=== PATIENT | male | born 1995 | race Caucasian/White ===

== ENCOUNTER 2021-07-12 10:13 | Emergency (ER) | payer OTHER, SELFPAY ==
--- NOTE | ~2021-07-12 | XR_ITS ---
EXAMINATION: XR HAND, LEFT CLINICAL INFORMATION: Index and middle finger trauma COMPARISON: None TECHNIQUE: PA, lateral, and oblique views of the left hand. FINDINGS: There is dressing seen overlying the second and third fingers. There is question of a soft tissue defect about the second distal phalanx. There is a linear lucency seen about the head of the second middle phalanx which may be related to artifact of the dressing or a nondisplaced fracture. If it is a fracture it appears to be intra-articular. Soft tissue swelling is present. There is some mild degenerative change about the first carpal metacarpal joint. There is some subchondral cyst formation seen involving the scaphoid which may be related to previous healed fracture or degenerative change at the radiocarpal joint.. Sclerotic lesion is seen involving the first proximal phalanx head which may representing a bone island/calcified fibroma. XR/XR hand LT min 3V IMPRESSION: Question nondisplaced fracture or artifact from overlying bandage involving the head second middle phalanx.
--- NOTE | 2021-07-12 10:30 | ED.UPPEXIN ---
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 He immediately took a T-shirt and tried to control the bleeding. He reports laceration on the palmar side of his fingers there were actively oozing blood when he takes a T-shirt away. He is able to fully extend and bend his fingers. He has no numbness or tingling. He is not sure when his last tetanus shot was. MD complaint: injury to: left and finger (Index and middle) Onset (ago): minute(s) Other Extremity Injury: left: fingers (Index and middle) Other injuries: none Handedness: right Place: work Severity: moderate Severity scale (1-10): 6 Relieving factors: immobilization Exacerbating factors: movement of extremity Context: other (Head tremor injury) Associated symptoms: denies other symptoms Treatments prior to arrival: bandage Related Data Previous Rx's Medication Instructions Recorded cephalexin 500 mg capsule 500 mg PO Q6H 7 Days #28 cap 07/12/21 ibuprofen 600 mg tablet 600 mg PO Q8H PRN #20 tab 07/12/21 Allergies Allergy/AdvReac Type Severity Reaction Status Date / Time No Known Allergies Allergy Unverified 05/31/20 18:40 Review of Systems Review of Systems: Constitutional: No Fever, No Chills Cardiovascular: No Chest Pain, No SOB Gastrointestinal: No Nausea, No Vomiting Musculoskeletal: + joint pain, No Myalgias Skin: No Skin Lesions, No rash, +lacerations Neuro: No Weakness, No Numbness, No Dizziness, No Headache Heme/Lymph: No Bruising PMFSH Past Medical History Surgical History (Updated 07/12/21 @ 10:53 by Milena Chandra) H/O hand surgery Social History Social History Advance Directives: No Advance Directives Information Provided: No Physical Exam Vital Signs: Vital Signs: Last Vital Signs Temp 97.9 F 07/12/21 10:48 Pulse 71 07/12/21 10:48 Resp 16 07/12/21 10:48 BP 111/54 L 07/12/21 10:48 Pulse Ox 99 07/12/21 10:48 Body Mass Index 22.5 Appearance: Alert. Oriented X3. No acute distress. HEENT: normal inspection CVS: Normal heart rate and rhythm. Pulses normal. Respiratory: No respiratory distress. Skin: Skin warm and dry. Normal skin color. Normal skin turgor. No rashes. Extremities: Left index and middle fingers with deep and complex lacerations to the palmar aspect. Normal range of motion of all digits. Cap refill less than 3 seconds distally. No sensory deficits. Deep structures are intact no visible bone or tendon. Neuro: Oriented X 3. No motor deficit. No sensory deficit. Course Course Course Narrative: 25-year-old male presenting with complex lacerations to his left index and middle fingers after he accidentally cut himself has tremors at work. Will get x-rays to assess for bony involvement, will irrigate and clean extensively prior to repair. Will give tetanus shot in Tylenol now. Reevaluation(s) Reevaluation #1: X-ray showing question of a nondisplaced fracture at the head of the 2nd middle phalanx. Will treat as an open fracture with p.o. Keflex. Will refer to Hand for further evaluation and treatment. Wounds were closed with sutures in patient tolerated the procedure well. Stable for discharge home with local wound care, finger splint, and follow up with Dr. Cantrell in the clinic. Procedures Laceration Laceration 1: Site: hand Side (If applicable): left Size (cm): 2.5 Description: linear and irregular Depth: involves muscle layer Local Anesthetic: lidocaine 1% Pre-repair: wound explored, irrigated extensively and deep structures intact Skin layer closed with: nylon Size (cm): 4-0 Number of sutures: 7 Laceration 2: Site: hand Side (If applicable): left Size (cm): 2 Description: linear and irregular Depth: simple, single layer Local Anesthetic: lidocaine 1% Pre-repair: wound explored, irrigated extensively and deep structures intact Skin layer closed with: nylon Size (cm): 4-0 Number of sutures: 6 Technique: simple, interrupted Nerve Block Nerve Block 1: Time out performed: Yes Local Anesthetic: lidocaine 1% Amount of anesthesia used (mL): 4 Side: left Nerve Blocks: digital Procedure Successful: Yes Patient Tolerated Procedure: well Complications: none Nerve Block 2: Time out performed: Yes Local Anesthetic: lidocaine 1% Amount of anesthesia used (mL): 5 Side: left Nerve Blocks: digital Procedure Successful: Yes Patient Tolerated Procedure: well Complications: none Discharge Plan Discharge Clinical Impression: Laceration Open fracture of finger of left hand Qualifiers: Encounter type: initial encounter Finger: index finger Phalanx: middle Fracture alignment: nondisplaced Qualified Code(s): S62.651B - Nondisplaced fracture of middle phalanx of left index finger, initial encounter for open fracture Patient Disposition: Home, Self-Care Instructions: Finger Fracture (ED), Finger Laceration (ED) Additional Instructions: You will need your stitches out in 10-14 days. See you doctor for this or come back to the ER and we will remove them. Do not get wet for 24 hours, after that you can briefly wash with soap and water then pat dry. Use bacitracin 2x per day. Keep wound clean and covered. Do not submerge in water, no swimming. Follow-up with the hand specialist, name and number below. Take the prescribed ibuprofen as needed for pain. Elevate and ice her hand as needed for pain. Take the prescribed antibiotics to help prevent infection. If you develop signs of infection including increased pain, swelling, redness or drainage of pus come back to the ER for further evaluation. Prescriptions: New cephalexin 500 mg capsule 500 mg PO Q6H 7 Days Qty: 28 RF: 0 ibuprofen 600 mg tablet 600 mg PO Q8H PRN (Reason: pain) Qty: 20 RF: 0 Referrals: Inez Cantrell MD [Physician] - 2 days (complex left finger lacs, open fracture) Stand Alone Forms: Work/School Release Interventions: ED Discharge Assessment Last Done: 07/12/21 12:34 Discharge Date/Time: 07/12/21 12:35
[2021-07-12 10:48] VITALS: BP 111/54; PULSE 71; RESP 16; TEMP 36.6; O2SAT 99; BMI 22.5
[2021-07-12] MEDS: Acetaminophen 325 MG TABLET 975 MG PO (10:55)
[2021-07-12] MEDS: Diphth,Pertus(ACell),Tet Adult 0.5 ML SYRINGE IM (10:56)
[2021-07-12] MEDS: Lidocaine HCl 1 % 20 ML VIAL SUBCUT (11:38)
== END 2021-07-12 12:35 | disposition home or self-care (01) ==
PROVIDERS: Emergency Provider Emergency Medicine
DX: S62.611B Displaced fracture of proximal phalanx of left index finger, initial encounter for open fracture (principal); S61.211A Laceration without foreign body of left index finger without damage to nail, initial encounter; S61.213A Laceration without foreign body of left middle finger without damage to nail, initial encounter; W29.3XXA Contact with powered garden and outdoor hand tools and machinery, initial encounter; Y93.H2 Activity, gardening and landscaping; Y92.9 Unspecified place or not applicable; Y99.0 Civilian activity done for income or pay
CPT/HCPCS: 12001; 12041; 73130; 90471; 90715; 99283; 99284

== ENCOUNTER → 2021-07-16 10:43 | Outpatient (BNVA) | payer OTHER, SELFPAY | PROVIDERS: Visit Provider Orthopaedic Surgery | DX: S61.213A Laceration without foreign body of left middle finger without damage to nail, initial encounter (principal); S61.211A Laceration without foreign body of left index finger without damage to nail, initial encounter | CPT/HCPCS: 99202 ==

== ENCOUNTER → 2021-07-24 10:39 | Outpatient (BNVA) | payer OTHER, SELFPAY | PROVIDERS: Visit Provider Orthopaedic Surgery | DX: S61.211D Laceration without foreign body of left index finger without damage to nail, subsequent encounter (principal); S61.213D Laceration without foreign body of left middle finger without damage to nail, subsequent encounter; R20.0 Anesthesia of skin; R20.2 Paresthesia of skin | CPT/HCPCS: 99212 ==

== ENCOUNTER → 2021-07-31 10:49 | Outpatient (BNVA) | payer OTHER, SELFPAY | PROVIDERS: Visit Provider Orthopaedic Surgery | DX: S61.213D Laceration without foreign body of left middle finger without damage to nail, subsequent encounter (principal); S61.211D Laceration without foreign body of left index finger without damage to nail, subsequent encounter; R20.0 Anesthesia of skin; R20.2 Paresthesia of skin | CPT/HCPCS: 99212 ==

== ENCOUNTER → 2021-08-21 11:36 | Outpatient (BNVA) | payer OTHER, SELFPAY | PROVIDERS: Visit Provider Orthopaedic Surgery | DX: S61.211D Laceration without foreign body of left index finger without damage to nail, subsequent encounter (principal); S61.213D Laceration without foreign body of left middle finger without damage to nail, subsequent encounter; R20.0 Anesthesia of skin; R20.2 Paresthesia of skin | CPT/HCPCS: 99212 ==